=== PATIENT | male | born 1940 | race Caucasian/White ===

== ENCOUNTER 2021-05-19 02:55 | Outpatient (CLI) | payer MEDICARE, SELFPAY ==
[2021-05-19 11:09] LABS: Source Nasal/Nares
[2021-05-19 15:08] LABS: COVID-19 PCR Negative (Negative)
== END 2021-05-19 02:56 | disposition home or self-care (01) ==
LOC: LBO 02:56
PROVIDERS: Visit Provider Podiatrist
DX: Z20.822 Contact with and (suspected) exposure to COVID-19 (principal)
CPT/HCPCS: 87635

== ENCOUNTER 2021-05-22 08:05 | Day surgery (SDC) | payer MEDICARE, SELFPAY ==
[2021-05-22 08:13] VITALS: BP 160/90; PULSE 62; RESP 16; TEMP 36.5; O2SAT 100
--- NOTE | 2021-05-22 08:54 | HPE_ITS ---
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 He is being brought to the OR for surgical resection of first metatarsal head in an attempt to reduce pressure under the wound and facilitate resolution. 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 of complete ray amputation of second toe of right foot Hypertension Rheumatoid arthritis Surgical History History of meniscectomy of left knee History of removal of cyst Hip History of tonsillectomy Hx of foot surgery b/l Social History Smoking/Tobacco Use Status: Former Tobacco Use Quit Date: 06/20/59 Smoking risk assessment performed?: Yes Alcohol Intake: current Alcohol Intake frequency: a few times a week Alcohol type: beer Drug use: Never Substance use type: does not use Additional Social history: Unable to assess [facility] Allergies and Home Medications Allergies Allergy/AdvReac Type Severity Reaction Status Date / Time No Known Allergies Allergy Unverified 05/22/21 08:33 Home Medications Medication Instructions Recorded Confirmed Type allopurinol 300 mg PO DAILY 05/19/21 05/22/21 History ascorbic acid (vitamin C) [Vitamin 1 g PO DAILY 05/19/21 05/22/21 History C] atenolol 50 mg PO DAILY 05/19/21 05/22/21 History hydrochlorothiazide 25 mg PO DAILY 05/19/21 05/22/21 History losartan 50 mg PO DAILY 05/19/21 05/22/21 History Exam Narrative Exam Narrative: Head is normocephalic Eyes PERRLA Hearing is reduced butadequate Uvula is midline Lung rubio were clear Heart had regular rate rhythm I detected no murmurs gallops or rubs Abdomen soft bowel sounds appreciated nontender Peripheral pulses are manually palpable at the ankle minus 2 out of 4 to plus 1 out of 4 no edema calves are soft to palpation capillary return to all toes under 3 seconds Muscle groups 5 out of 5 bilaterally Skeletal exam is remarkable for the right foot for gross deformity rheumatoid arthritis affected with end-stage lateral deviation of all toes at the metatarsal phalangeal joint surgical absence of the second toe. Ulceration is appreciated along the plantar medial aspect of the right first metatarsal head. Neurologically diminished with peripheral neuropathy Impressions: Chronic wound right first metatarsal head region as above Plan: Surgical intervention consisting of debridement of the ulcer resection of the underlying bone as needed. He understands risk and complications pertaining to pain, scarring, and potential for infection and wound dehiscence, potential for transfer callus and/or ulceration formation over time due to the mechanical alteration of his foot. All questions have been answered in detail there are no promises as to final surgery. Informed consents been obtained. Results Last Vital Signs Temp 36.5 C 05/22/21 08:13 Pulse 62 05/22/21 08:13 Resp 16 05/22/21 08:13 BP 160/90 H 05/22/21 08:13 Pulse Ox 100 05/22/21 08:13
[2021-05-22] MEDS: Lactated Ringers 1,000 ML 80 ML IV (08:56)
--- NOTE | 2021-05-22 09:29 | W.ANESPRE ---
General Info Date of Service Date Performed: 05/22/21 Height: 5 ft 8 in Weight: 80.4 kg Body Mass Index (BMI): 26.9 Surgical Procedure: Operation Date: 05/22/21 09:55 Proposed Procedures Side Surgeon p Debridement RIGHT FOOT, RESECTION 1ST MPJ Right Dany Charles Del Cid DPM Meds Allergies and Home Medications Allergies Allergy/AdvReac Type Severity Reaction Status Date / Time No Known Allergies Allergy Unverified 05/22/21 08:33 Home Medication Medication Instructions Recorded allopurinol 300 mg PO DAILY 05/19/21 ascorbic acid (vitamin C) [Vitamin 1 g PO DAILY 05/19/21 C] atenolol 50 mg PO DAILY 05/19/21 hydrochlorothiazide 25 mg PO DAILY 05/19/21 losartan 50 mg PO DAILY 05/19/21 Current Visit Medications: Current Medications Generic Name Dose Route Start Last Admin Trade Name Freq PRN Reason Stop Dose Admin Sodium Chloride 500 mls @ 0 mls/hr 05/22/21 06:00 Saline 500ml Bag IV PRN PRN As Directed Cefazolin Sodium/Dextrose 2 gm in 50 mls @ 100 mls/hr 05/22/21 06:00 Ancef Duplex IVPB PREOP XAVI Ringer's Solution 1,000 mls @ 80 mls/hr 05/22/21 06:00 05/22/21 08:56 IV 06/20/21 23:59 80 mls/hr INFUSION XAVI Administration IV Miscellaneous Supplies 1 each 05/22/21 06:00 Iv Access IV DIRECTED XAVI IV Miscellaneous Supplies 1 each 05/22/21 06:00 Iv Access IV 06/20/21 23:59 DIRECTED XAVI Povidone Iodine 0 ml 05/22/21 06:00 Povidone-Iodine Soln. 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 of complete ray amputation of second toe of right foot Hypertension Rheumatoid arthritis Surgical History Surgical History History of meniscectomy of left knee History of removal of cyst Hip History of tonsillectomy Hx of foot surgery b/l Tobacco Smoking/Tobacco Use Status: Former Tobacco Use Alcohol Alcohol Intake: current Alcohol intake frequency: a few times a week Alcohol type: beer Substance Use Substance use: Never Substance use type: does not use Vital Signs and Lab Results Vital Signs Most Recent Vital Signs in EMR: Most Recent Vital Signs Temp Pulse Resp BP Pulse Ox 36.5 C 62 16 160/90 H 100 05/22/21 08:13 05/22/21 08:13 05/22/21 08:13 05/22/21 08:13 05/22/21 08:13 Lab Results Blood Type / Crossmatch: No Data to Display Complete Blood Count: No Data to Display Complete Metabolic Panel: No Data to Display Liver Function Panel: No Data to Display Coagulation Panel: No Data to Display Cardiac Panel: No Data to Display Arterial Blood Gas: No Data to Display Venous Blood Gas: No Data to Display Pancreas Panel: No Data to Display Thyroid Panel: No Data to Display Infectious Disease: Coronavirus (COVID-19)(PCR) Negative (Negative) 05/19/21 10:35 05/19/21 Coronavirus 2019 Source Nasal/Nares 05/19/21 10:35 05/19/21 Blood Cultures: No Data to Display Toxicology Panel: No Data to Display Anesthesia Assessment and Plan Anesthesia History Personal History: No History of Anesthesia Complications Family History: No Family History of Anesthesia Complications Exercise Tolerance Exercise Tolerance: Metabolic Equivalents>4 Pertinent Negatives Pertinent Negatives: No Symptoms of GERD, No Major Cardiovascular Symptoms or Complaints and No Major Pulmonary Symptoms or Complaints Cardiac & Pulmonary Exam Cardiac Exam: Normal S1/S2 Heart Sounds Pulmonary Exam: Clear Bilateral Breath Sounds Implantable Cardiac Device Does patient have a Pacemaker or an ICD?: No Airway Exam Known Difficult Airway: No Mallampati Class: 2 Mouth Opening: Normal (> 3cm) Thyromental Distance: Greater than 3 cm Neck Range of Motion: Full ROM Neck Circumference: Normal Teeth Condition: Normal Dentition ASA Classification ASA Score: ASA 2 Emergency Case?: No NPO Status NPO Status: NPO Clears >2 hours, Solids >8 hours Anesthesia Plan Resuscitation Status: Full Code Anesthesia Technique: General Anesthesia Airway Planned: Natural Airway Monitors Used: Standard Monitors
[2021-05-22 09:33] VITALS: BMI 26.9
[2021-05-22] MEDS: ceFAZolin 2 GM/50 ML BAG IVPB (11:00)
[2021-05-22] MEDS: Lidocaine 1% Multi-Dose 50 ML VIAL (11:01)
[2021-05-22] MEDS: Bupivacaine 0.5% Pres-Free 30 ML VIAL (11:01)
--- NOTE | 2021-05-22 11:26 | TOE_PTH ---
PATIENT: Preston Teresa LOC: [facility] U#:[id number] AGE/SX: 81/M ROOM: RE05/22/[address]: Dany Del Cid : 1940 BED: DIS: 05/22/2021 SPEC #: [id number] RECD: 05/23/21 10:13 STATUS: ESTEPHANIE RE #: [id number] NO: 05/22/21 11:[address]: Dany Del Cid DEPT: Surgical Specimen RECD BY: Tasneem Narayan ENTERED: 05/23/21 10:15 SP TYPE: TOE OTHR DR: Laila Mora Tissues: 1 - BONE BX/CURRETTE NOT PATH FRACTURE Procedures: GROSS AND MICRO LEVEL 3 DECALCIFICATION Comments: [id number]
--- NOTE | 2021-05-22 11:56 | W.PM.DSUDISC ---
Discharge Plan Disposition Patient Disposition: HOME Condition: Good Discharge Details Reason For Visit: Resection right first metatarsal head with wound d Attending Provider: Dany Del Cid Primary Care Provider: Laila Mora Home Meds and New Rx's Prescriptions: New oxycodone-acetaminophen 5-325 mg tablet 1 tab PO Q6H PRN (Reason: pain) Qty: 9 RF: 0 Continued allopurinol 300 mg Tablet 300 mg PO DAILY RF: 0 losartan 50 mg Tablet 50 mg PO DAILY RF: 0 ascorbic acid (vitamin C) [Vitamin C] 1,000 mg Tablet 1 g PO DAILY RF: 0 hydrochlorothiazide 25 mg Tablet 25 mg PO DAILY RF: 0 atenolol 50 mg Tablet 50 mg PO DAILY RF: 0 Discharge Instructions Activity:: Elevate Remove Dressings/Wound Care:: Do Not Remove Shower/Bathe:: Cover Diet:: Normal Diet Discharge Orders Discharge Orders: Discharge Order (Routine); Ordered 05/22/21 Ordered By: Dany Del Cid DS: Diagnosis Discharge Diagnosis (1) Ulcer of foot with fat layer exposed: Status: Acute (2) Hallux valgus of right foot: Status: Acute
[2021-05-22 11:58] VITALS: BP 189/75; PULSE 60; RESP 16; TEMP 36.2; O2SAT 100
--- NOTE | 2021-05-22 12:01 | W.PM.OP ---
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 He is being brought to the operative suite for debridement of the wound and resection of the underlying bone which will be the first metatarsal head. He understands the potential for ongoing problems with pain, scarring, infection, failure to thrive failure of the ulceration to heal potentially requiring additional surgical intervention loss of the great toe. All questions have been answered in detail no promises made to the final outcome of surgery. Informed consent was obtained. Procedure Description: Mulugeta was brought to the operative suite placed in the supine position with the right foot prepped and draped in the usual sterile podiatric fashion. Timeout was performed for safe surgery. Anesthesia was achieved with 10 cc of a 50: 50 mixture 1% lidocaine plain, 0.5% Marcaine plain as a Loya block. The foot was exsanguinated well-padded ankle tourniquet inflated 250 mmHg. Attention was directed to the first MPJ where a dorsal incision was made approximately 5 cm in length starting proximal of the surgical neck of the first metatarsal ending at the base of the proximal phalanx. The incision was deepened in controlled depth fashion hemostasis being acquired with electrocautery as needed. Dissection was carried down to the joint capsule. The joint capsule was opened and severe degenerative change of the first MPJ noted consistent with rheumatoid arthritis. Severe hallux valgus deformity was noted. Dissection was performed releasing the first metatarsal head from the surrounding tissue and the head was resected at its surgical neck. Additional bone was then resected along the medial aspect so as to further reduce pressure in that region. All rough and bony edges were rasped smooth. The bone was sent to pathology for evaluation but it was strangely saw and actually fell apart with gentle manipulation. There was no active sign of infection. The plantar ulceration does not communicate at into the joint capsule level. Copious irrigation was performed. The joint capsule was subsequently closed with simple interrupted suture 3-0 Vicryl the subcutaneous layer was repaired with simple interrupted suture of 4-0 Vicryl the skin was then coapted with simple interrupted suture of 4-0 nylon utilizing a round sure the base and periphery of the ulceration was debrided and scalloped to healthy tissue. Xeroform gauze fluff compression dressings were applied tourniquet had been released a little bit previously due to backflow issues and was released to 24-minute Xeroform gauze fluff compression dressings being applied Preston left the OR with vital signs stable vascular status intact sharp and sponge counts were correct he will be followed by myself in the office next week.
--- NOTE | 2021-05-22 12:18 | W.ANESPOSTOP ---
Postoperative Evaluation Date, Time and Location Date Performed: 05/22/21 Time Performed: 12:05 Patient Location: Day Surgery Unit Vital Signs Most Recent Imported Vital Signs: Most Recent Vital Signs Temp Pulse Resp BP Pulse Ox 36.5 C 62 16 160/90 H 100 05/22/21 08:13 05/22/21 08:13 05/22/21 08:13 05/22/21 08:13 05/22/21 08:13 Pain Score Most Recent Pain Score: Most Recent Pain Score Pain Level 0 05/22/21 08:13 Assessment Mental Status: Awake (Alert & Oriented to Patient Baseline) Airway and Respiratory Function: Patent airway with normal (patient baseline) respiratory exam Cardiovascular Function: Hemodynamically Stable Hydration Status: Adequately Hydrated Nausea & Vomiting: No Nausea or Vomiting Pain: Pt. Denies Any Pain Peripheral Nerve Block: Patient did not receive a nerve block
[2021-05-22 12:34] VITALS: BP 150/61; PULSE 58; RESP 17; TEMP 36.7; O2SAT 99
== END 2021-05-22 12:53 | disposition home or self-care (01) ==
PROVIDERS: PCP Internal Medicine; Visit Provider Podiatrist
PROC: (CPT 28104; principal; 2021-05-22 09:45)
DX: L97.502 Non-pressure chronic ulcer of other part of unspecified foot with fat layer exposed (principal); M20.11 Hallux valgus (acquired), right foot; I10 Essential (primary) hypertension; M06.9 Rheumatoid arthritis, unspecified; M10.9 Gout, unspecified
CPT/HCPCS: 28104; 97597; 88304; 88309; 88311; J0690; J2001; J2704

== ENCOUNTER 2022-09-23 09:30 | Outpatient (REF) | payer MEDICARE, SELFPAY ==
--- OUTSIDE RECORDS SUMMARY | 2022-09-23 09:40 | XMS_ITS | Continuity of Care Document ---
Author Name Unknown Organization [facility] Address [address] [place] [address] Care Team Providers Care Basket Hand Braider Name Role Phone Laila Mora Primary Care Physician Encounter [facility] Date(s): 08/22/22 - 08/22/[address] [address] Discharge Disposition: Home or Self Care Attending Physician: Xochitl Olivera PA-C Admitting Physician: Xochitl Olivera PA-C Social History Social History Type Response Sex Male Patient Care team information Care Team Personnel Name: Laila Mora MD Position: PowerChart View Only Member Role: Primary Care Physician Address: Address: [address] [id number] Care Team Related Persons Name: NAM COULTER
== END 2022-09-23 09:31 | disposition home or self-care (01) ==
LOC: LBN 09:30
PROVIDERS: PCP Internal Medicine; Referring Provider Internal Medicine; Visit Provider Podiatrist Foot & Ankle Surgery
DX: L02.612 Cutaneous abscess of left foot (principal)
CPT/HCPCS: 87070; 87075; 87205

== ENCOUNTER 2022-09-23 10:36 | Outpatient (CLI) | payer MEDICARE, SELFPAY ==
--- NOTE | 2022-09-23 10:38 | DI.RAD_ITS ---
Exam(s) XR FOOT LT COMPLETE EXAM: XR FOOT LT COMPLETE CLINICAL HISTORY: L foot abscess, probe to 1st metatarsal head capsu L08.9 INFECTION L02.91. TECHNIQUE: 2D digital imaging was performed. COMPARISON: No exams were available for comparison FINDINGS: 3 views There is prominent hallux valgus. There are erosions on the medial aspect the head of the great toe metatarsal. There is lateral sublu xation of the phalanges of the great toe and moderate narrowing of the great toe metatarsophalangeal joint. The phalanges of the 2nd toe have been resected. No other amputations evident. There is pes planus. Moderate size inferior calcaneal spur evident. Large os trigonum. Prominent t rabeculations within the talar bone. Prominent proximal base of the 5th metatarsal. Mild degenerati ve changes at the midfoot articulations evident. IMPRESSION: As above. DATA REPOSITORY: RADIATION DOSE DELIVERED:
== END 2022-09-23 10:56 ==
LOC: DI 10:53
PROVIDERS: PCP Internal Medicine; Visit Provider Podiatrist Foot & Ankle Surgery
DX: L02.612 Cutaneous abscess of left foot; L08.89 Other specified local infections of the skin and subcutaneous tissue; M77.32 Calcaneal spur, left foot; M21.42 Flat foot [pes planus] (acquired), left foot; M20.12 Hallux valgus (acquired), left foot
CPT/HCPCS: 73630

== ENCOUNTER → 2023-07-25 09:42 | Outpatient (BNVA) | payer MEDICARE, SELFPAY | PROVIDERS: PCP Internal Medicine; Referring Provider Internal Medicine; Visit Provider Podiatrist | DX: L97.512 Non-pressure chronic ulcer of other part of right foot with fat layer exposed (principal); N18.9 Chronic kidney disease, unspecified; L60.3 Nail dystrophy; B35.1 Tinea unguium; Z89.421 Acquired absence of other right toe(s); Z89.422 Acquired absence of other left toe(s); R09.89 Other specified symptoms and signs involving the circulatory and respiratory systems; I73.9 Peripheral vascular disease, unspecified; L65.9 Nonscarring hair loss, unspecified; R60.0 Localized edema; L60.8 Other nail disorders; R20.8 Other disturbances of skin sensation | CPT/HCPCS: 11042; 11055; 11721; 97597; 99214 ==

== ENCOUNTER → 2023-07-25 12:10 | Outpatient (CLI) | payer MEDICARE, SELFPAY ==
--- NOTE | 2023-07-25 11:05 | DI.RAD_ITS ---
Exam(s) XR FOOT RT COMPLETE EXAM: XR FOOT RT COMPLETE CLINICAL HISTORY: L97.502 Non-pressure chronic ulcer , Osteomyelitis right foot. TECHNIQUE: 2D digital imaging was performed. Three views. COMPARISON: None FINDINGS: There is severe deformity at the tibiotalar joint. There are severe degenerative changes and promine nt periarticular spurring. There are surrounding bony densities. Severe degenerative changes also p resent at talonavicular joint. Prior resections in the distal portions of the 1st and 5th metatarsal s as well as amputation of the 2nd toe. Subacute appearing nondisplaced fractures at the distal 3rd and 4th metatarsals. IMPRESSION: Subacute fractures at the distal 3rd and 4th metatarsals. Severe degenerative changes, greatest at the tibiotalar joint. DATA REPOSITORY: RADIATION DOSE DELIVERED:
== END ==
PROVIDERS: PCP Internal Medicine; Visit Provider Podiatrist
DX: S92.341A Displaced fracture of fourth metatarsal bone, right foot, initial encounter for closed fracture (principal); X58.XXXA Exposure to other specified factors, initial encounter
CPT/HCPCS: 73630

== ENCOUNTER → 2023-08-23 13:24 | Outpatient (BNVA) | payer MEDICARE, SELFPAY | PROVIDERS: PCP Internal Medicine; Referring Provider Internal Medicine; Visit Provider Podiatrist | DX: M05.50 Rheumatoid polyneuropathy with rheumatoid arthritis of unspecified site; N18.9 Chronic kidney disease, unspecified; L60.3 Nail dystrophy; B35.1 Tinea unguium; L97.512 Non-pressure chronic ulcer of other part of right foot with fat layer exposed; S98.131A Complete traumatic amputation of one right lesser toe, initial encounter; S98.132A Complete traumatic amputation of one left lesser toe, initial encounter | CPT/HCPCS: 97597 ==

== ENCOUNTER → 2023-10-05 14:26 | Outpatient (BNVA) | payer MEDICARE, SELFPAY | PROVIDERS: PCP Internal Medicine; Referring Provider Internal Medicine; Visit Provider Podiatrist | DX: Z09 Encounter for follow-up examination after completed treatment for conditions other than malignant neoplasm (principal); L97.502 Non-pressure chronic ulcer of other part of unspecified foot with fat layer exposed; M05.50 Rheumatoid polyneuropathy with rheumatoid arthritis of unspecified site; N18.9 Chronic kidney disease, unspecified; L60.3 Nail dystrophy; B35.1 Tinea unguium; S98.139A Complete traumatic amputation of one unspecified lesser toe, initial encounter; L84 Corns and callosities | CPT/HCPCS: 11055 ==

== ENCOUNTER → 2024-02-01 09:41 | Outpatient (BNVA) | payer MEDICARE, SELFPAY | PROVIDERS: PCP Internal Medicine; Referring Provider Internal Medicine; Visit Provider Podiatrist | DX: L97.502 Non-pressure chronic ulcer of other part of unspecified foot with fat layer exposed (principal); M05.50 Rheumatoid polyneuropathy with rheumatoid arthritis of unspecified site; N18.9 Chronic kidney disease, unspecified; L60.3 Nail dystrophy; B35.1 Tinea unguium; L84 Corns and callosities; Z89.421 Acquired absence of other right toe(s); Z89.422 Acquired absence of other left toe(s); I73.89 Other specified peripheral vascular diseases; M10.9 Gout, unspecified; M79.671 Pain in right foot; M79.672 Pain in left foot | CPT/HCPCS: 11055; 11721 ==